=== PATIENT | female | born 1990 | race Caucasian/White ===

== ENCOUNTER 2020-07-10 10:22 | Emergency (ER) | payer MEDICAID, OTHER ==
[~2020-07-10] VITALS: Ht 160 cm; Wt 136.4 kg
[~2020-07-10 10:22] MED LIST: OMEP40CA21 PO
--- NOTE | 2020-07-10 13:00 | NUR ---
PT STATES, LAST SUNDAY STARTED WITH SOB, CONGESTION. HX; ASTHMA. INHALER HELPED A LITTLE BIT. MUCINEX NOT EFFECTIVE FOR CONGESTION. ITCHING IN EARS YAJAIRA. COUGHING UP THICK BROWN SECRETIONS
[2020-07-10] MEDS ORDERED: albuterol 2.5 MG/3 ML nebule NEB ONE (13:25)
[2020-07-10] MEDS ORDERED: ALBU8.5H8 INH (13:47)
[2020-07-10 14:03] VITALS: BP 110/83
== END 2020-07-10 14:06 | disposition home or self-care (01) ==
LOC: ER 10:23
DX: J20.9 Acute bronchitis, unspecified (principal); J45.909 Unspecified asthma, uncomplicated; Z88.2 Allergy status to sulfonamides; Z88.1 Allergy status to other antibiotic agents; Z79.899 Other long term (current) drug therapy
CPT/HCPCS: 71046; 94640; 94760; 99283; 99284

== ENCOUNTER 2024-09-25 09:38 | Emergency (ER) | payer MEDICAID, OTHER ==
[~2024-09-25] VITALS: Ht 160 cm; Wt 154.8 kg
[~2024-09-25 09:38] MED LIST changes: +ALBU8.5H17 INH
[2024-09-25 09:41] VITALS: TEMP 97.9
--- NOTE | 2024-09-25 10:39 | ELECTROCARDIOGRAPH REPORT ---
[facility] Test Date: 2024-09-25 Test Time: 10:37:21 Pat Name: CESAR LEÓN Department: [facility] Patient ID: [facility]-[id number] Room: Gender: F [employer]: : [id number] Requested By: JESSICA PAUL Order Number: [id number] Reading MD: Measurements Intervals [place] Rate: 91 P: 53 IN: 128 QRS: 59 QRSD: 88 T: 28 QT: 357 QTc: 440 Interpretive Statements Sinus rhythm Low voltage, precordial leads Please click the below link to view image of tracing.
--- NOTE | 2024-09-25 10:44 | RADIOLOGY REPORT ---
CHEST RADIOGRAPH Indication: SOB Technique: Frontal and lateral view of the chest was obtained Comparison: None FINDINGS: Lines and Tubes: None Lungs: Clear Pleura: No effusion. No pneumothorax. Cardiomediastinal contours: Unremarkable Bones: Unremarkable IMPRESSION: No evidence of acute disease.
[2024-09-25] MEDS: dexamethasone sod phosphate 10mg/ml inj IM STA (10:48)
[2024-09-25 11:17] LABS: MEAN PLATELET VOLUME 9.6 FL (7.4-10.4); RED CELL DISTRIBUTION WIDTH 13.7 % (11.5-14.5)
[2024-09-25 11:33] LABS: CREATININE 0.78 MG/DL (0.40-0.90); TOTAL CARBON DIOXIDE 28.0 MMOL/L (24-32); eCRCL 86 ML/MIN; eGFR 86 ML/MIN
[2024-09-25] MEDS: ipratropium/albuterol 3ml nebule NEB PRN (12:40)
[2024-09-25 12:41] VITALS: PULSE 90; PULSE 95; RESP 16; RESP 20; O2SAT 100; O2SAT 98
--- NOTE | 2024-09-25 12:48 | Physician Documentation ---
History of Present Illness ~ Chief Complaint: Cold, cough & congestion Stated Complaint: COUGH Time Seen by MD: 10:47 Primary Medical Doctor: none HPI Patient is a 33-year-old female that presents to the emergency department for evaluation of chest tightness and shortness of breath. Reports that she was diagnosed with COVID yesterday. Patient reports she has asthma at baseline. Patient reports the last time she had COVID she developed tightness in her chest difficulty breathing required that she use her inhaler more often. Patient will need a work note. Medication Reconciliation Allergies: Coded Allergies: Sulfa (Sulfonamide Antibiotics) (Unverified Allergy, Unknown, 09/25/24) erythromycin base (Unverified Allergy, Unknown, 09/25/24) Scheduled Omeprazole (Prilosec), 1 CAP PO DAILY, (Reported) Scheduled PRN Albuterol Sulfate (Proair Hfa), 2 PUFFS INH Q4HPRN PRN for wheezing Past Medical History Past Medical History: Asthma, Bronchitis Review of Systems ROS As stated above in the HPI, otherwise all systems are reviewed and negative. Physical Exam Vital Signs: Temperature: 97.9, Heart Rate: 90, Respiratory Rate: 15, BP: 145/8 0, Pulse Oximetry: 98, Weight: 154.800 Oxygen Flow Rate: 0 Physical Exam VITALS: Reviewed and as above. GENERAL: Alert, no apparent distress. HEENT: Normocephalic, atraumatic, PERRL, EOMI, dry mucosa, no erythema RESPIRATORY: Lungs clear, normal breath sounds, no respiratory distress. CHEST: No accessory muscle use, no retractions, moving air into the lower bases, no inspiratory or expiratory wheezes noted at this time. CV: Regular rate, rhythm, no edema, no murmur, No: JVD GI: Soft, non-tender, bowels sounds present, no rebound, guarding, or rigidity BACK: No CVA tenderness, or swelling MUSCULOSKELETAL No deformities, no edema SKIN: Warm and dry, no rash NEURO: Oriented x4, No motor or sensory deficit PSYCH: Normal mood and affect, no agitation Progress Results/Orders Results/Orders Orders - IZA PAUL BANQUET PILOT Ipratropium/Albuterol Nebule (Ipratrop/A (09/25/24 10:00) Chest,Two Views (09/25/24 10:00) Urinalysis, Cult If Indicated (09/25/24 10:48) Completed Orders - IZA PAUL Dexamethasone Inj (Decadron 10mg/Ml Inj) (09/25/24 10:00) Chest,Two Views (09/25/24 10:00) Stat Ekg (09/25/24 10:00) Cbc/Diff (09/25/24 10:48) CMP (09/25/24 10:48) Medications Received in ER Medications (Trade) Dose Ordered Sig/Brayan Route PRN Reason Start Time Stop Time Status Last Admin Dose Admin (ipratrop/ albuterol 0.5-3(2.5) MG/3ml nebule) 3 ml ONCE PRN NEB SOB or wheezing 09/25/24 10:00 09/25/24 12:40 3 ML (Decadron 10mg/ ml inj) 10 mg ONCE STAT IM 09/25/24 10:00 09/25/24 10:03 DC 09/25/24 10:48 10 MG Vital Signs 09/25/24 09/25/24 09:41 10:46 Temp 97.9 Pulse 97 90 Resp 26 15 B/P (MAP) 165/98 145/80 (101) Pulse Ox 98 98 O2 Flow Rate 0 Laboratory Tests Test 09/25/24 11:09 White Blood Count 10.1 Red Blood Count 5.14 Hemoglobin 14.3 Hematocrit 41.9 Mean Corpuscular Volume 81.6 Mean Corpuscular Hemoglobin 27.9 Mean Corpuscular Hemoglobin Concent 34.2 Red Cell Distribution Width 13.7 Platelet Count 300 Mean Platelet Volume 9.6 Neutrophils (%) (Auto) 67.2 Lymphocytes (%) (Auto) 21.7 Monocytes (%) (Auto) 9.3 Eosinophils (%) (Auto) 1.3 Basophils (%) (Auto) 0.5 Neutrophils # (Auto) 6.8 Lymphocytes # (Auto) 2.2 Monocytes # (Auto) 0.9 Eosinophils # (Auto) 0.1 Basophils # (Auto) 0.0 CBC Comment Sodium Level 135 Potassium Level 4.1 Chloride Level 100 Carbon Dioxide Level 28.0 Anion Gap 7 L Blood Urea Nitrogen 5 L Creatinine 0.78 Estimated GFR/1.73 m2 86 BUN/Creatinine Ratio 6.4 L Glucose Level 294 H Calcium Level 9.1 Total Bilirubin 0.4 Aspartate Amino Transf (AST/SGOT) 24 Alanine Aminotransferase (ALT/SGPT) 29 Alkaline Phosphatase 91 Total Protein 7.7 Albumin 3.2 L Globulin 4.5 H Albumin/Globulin Ratio 0.7 L Chemistry Comments Medical Decision Making Findings This patient presents with symptoms suspicious for likely viral upper respiratory infection. Based on history and physical doubt sinusitis. Patient is diagnosed with COVID yesterday. Do not suspect underlying cardiopulmonary process. I considered, but think unlikely, dangerous causes of this patients symptoms to include ACS, CHF or COPD exacerbations, pneumonia, pneumothorax. Patient is nontoxic appearing and not in need of emergent medical intervention. Patient told to self isolate at home until symptoms subside and she is without fever for at least 24 hours. Patient was given dexamethasone here in the emergency department, refill her albuterol inhaler provide her with a note. Please fluids use your albuterol as needed Tylenol ibuprofen for discomfort. Follow up with the primary care provider. Return to emergency department if you have any worsening or recurrent symptoms or any additional concerning symptoms that we discussed here today i.e. increased shortness of breath chest tightness difficulty breathing or any other concerning symptoms. Differential Dx:Considerations: Include: Allergic rhinitis, Influenza, Otitis media, Peritonsillar abscess, Pharyngitis-Diphtheria, Pharyngitis-Streptoccal, Pharyngitis-Viral, Pneumonia, Pnuemonitis, Sinusitis, URI, Other Departure Disposition: 01 HOME / SELF CARE / HOMELESS Impression: Primary Impression: Upper respiratory infection Additional Impressions: COVID Asthma exacerbation Additional Instructions: This patient presents with symptoms suspicious for likely viral upper respiratory infection. Based on history and physical doubt sinusitis. Patient is diagnosed with COVID yesterday. Do not suspect underlying cardiopulmonary process. I considered, but think unlikely, dangerous causes of this patients symptoms to include ACS, CHF or COPD exacerbations, pneumonia, pneumothorax. Patient is nontoxic appearing and not in need of emergent medical intervention. Patient told to self isolate at home until symptoms subside and she is without fever for at least 24 hours. Patient was given dexamethasone here in the emergency department, refill her albuterol inhaler provide her with a note. Please fluids use your albuterol as needed Tylenol ibuprofen for discomfort. Follow up with the primary care provider. Return to emergency department if you have any worsening or recurrent symptoms or any additional concerning symptoms that we discussed here today i.e. increased shortness of breath chest tightness difficulty breathing or any other concerning symptoms. Departure Forms: Excuse form Work or School Excused From: Work Excuse beginning now through the following date: Sep 25, 2024 May Return but still avoid physical Activity from now until: Oct 01, 2024 Referrals: NO PRIMARY CARE PROVIDER (PCP) Prescriptions albuterol inhaler (Pro-Air Inhaler) 8.5 Gm Inhaler 2 PUFFS PO PRN for 90 Days, INH 1 Refill Prov: IZA PAUL 09/25/24 Education Educated: Patient Educated regarding: diagnosis, treatment, need for follow up Signature Scribe Signature: Scribed for Iza Paul by AMANDA Sánchez . 09/25/24 12:52 Attestation: Scribed for Iza Paul by AMANDA Sánchez . 09/25/24 12:52 IZA PAUL Sep 25, 2024 12:48
[2024-09-25] MEDS ORDERED: ALBU8HFA PO (12:51)
[2024-09-25 13:00] VITALS: BP 164/88; PULSE 100; RESP 15; O2SAT 98
== END 2024-09-25 13:01 | disposition home or self-care (01) ==
LOC: ER 09:39
DX: U07.1 COVID-19 (principal); J45.901 Unspecified asthma with (acute) exacerbation; Z88.1 Allergy status to other antibiotic agents; Z88.2 Allergy status to sulfonamides
CPT/HCPCS: 36415; 71046; 80053; 85025; 93005; 94640; 96372; 99285; J1100